=== PATIENT | male | born 1990 | race Caucasian/White ===

== ENCOUNTER 2017-01-21 19:35 | Emergency (ER) | END 2017-01-22 00:02 | disposition home or self-care (01) | DX: S05.92XA Unspecified injury of left eye and orbit, initial encounter (principal); W21.02XA Struck by soccer ball, initial encounter; Y92.9 Unspecified place or not applicable ==

== ENCOUNTER 2017-09-09 16:09 | Emergency (ER) | END 2017-09-09 20:00 | disposition home or self-care (01) ==

== ENCOUNTER 2018-10-16 11:13 | Emergency (ER) | payer OTHER ==
[~2018-10-16] VITALS: Ht 167.6 cm; Wt 75.0 kg
[~2018-10-16 11:13] MED LIST: GENT5DRO28 LEFT EYE; IBUP-1542 PO
[2018-10-16 11:21] VITALS: BP 136/93; PULSE 74; RESP 18; Ht 167.6 cm; Wt 75.0 kg
[2018-10-16] MEDS ORDERED: NAPR-985 PO (12:58)
--- NOTE | 2018-10-16 15:25 | ERD ---
ER Documentation Chief Complaint Chief Complaint left knee pain x yesterday HPI 27-year-old male presents to the emergency department complaining of left knee injury which occurred yesterday. The patient states he was running during a soccer game when he twisted his left knee and felt a pop. He reports 6/10 pain which is intermittent and worse with walking. He states he has difficulty weightbearing to the left lower extremity due to pain. He tried no medication at home to help with symptoms. He denies any falls, head trauma, loss of consciousness, or other symptoms or injuries at this time. ROS All systems reviewed and are negative except as per history of present illness. Medications Home Meds Active Scripts Naproxen* (Naprosyn*) 500 Mg Tablet, 500 MG PO BID PRN for PAIN AND/OR INFLAMMATION, #30 TAB Prov:MARILEE BRIDGES PA-C 10/16/18 Ibuprofen* (Motrin*) 600 Mg Tab, 600 MG PO Q6, #20 TAB Prov:PARTHA MALCOLM MD 09/09/17 Gentamicin Sulfate* (Gentamicin Sulfate* Ophth) 0.3% - 5 Ml Drops, 2 DROP LEFT EYE Q4 for 7 Days, #1 EA Prov:VANESSA CHANDLER PA-C 01/21/17 Allergies Allergies: Coded Allergies: No Known Allergy (Unverified , 01/21/17) PMhx/Soc History of Surgery: No Anesthesia Reaction: No Hx Neurological Disorder: No Hx Respiratory Disorders: No Hx Cardiac Disorders: No Hx Psychiatric Problems: No Hx Miscellaneous Medical Probl: Yes (PROTIEN C DEFFICENCY) Hx Alcohol Use: Yes (OOC) Hx Substance Use: No Hx Tobacco Use: No Smoking Status: Never smoker FmHx Family History: No diabetes Physical Exam Vitals Vital Signs Date Temp Pulse Resp B/P (MAP) Pulse Ox O2 O2 Flow FiO2 Time Delivery Rate 10/16/18 98.2 74 18 136/93 98 11:21 (107) Physical Exam const: No acute distress Head: Atraumatic Eyes: Normal Conjunctiva ENT: Normal External Ears, Nose and Mouth. Neck: Full range of motion. No meningismus. Resp: No respiratory distress. Skin: No petechiae or rashes Ext: Tenderness palpation over the left anterior knee with mild joint effusion noted. Decreased range of motion secondary to pain. Patient is neurovascularly intact distally. Neur: Awake and alert Psych: Normal Mood and Affect Results 24 hrs [place] [address] Radiology Main Line: [phone] DIAGNOSTIC IMAGING REPORT Patient: ROSA BETANCOURT : 1990 Age: 27 Sex: M MR #: [id number] DOS: 10/16/18 0000 Ordering MD: MARILEE BRIDGES PA-C Location: [facility] Room/Bed: PROCEDURE: X-RAY LEFT KNEE CLINICAL INDICATION: Left knee pain after injury. TECHNIQUE: Three views of the left knee are available for review. COMPARISON: None available FINDINGS: Bony alignment is within normal limits. Joint spaces are preserved. No fracture identified. There is a large joint effusion present. The joint effusion can be seen with synovitis and/or reflect soft tissue injury such as meniscal tear and/or ligament injury. IMPRESSION: 1. Large joint effusion which can be seen with synovitis and reflect soft tissue injury such as a meniscal tear and/or ligament injury. 2. No acute fracture or dislocation is seen. RPTAT: XX .Fernando Dahl MD, MD Date Time Electronically viewed and signed by .Fernando Dahl MD, MD on 10/16/2018 12:45 .T/ CC: MARILEE BRIDGES PA-C [id number] Procedures/MDM 27-year-old male presents to the emergency department with signs and symptoms most consistent with ligamental or tendon injury to the left knee. X-rays negative for signs of fracture. Patient was neurovascularly intact distally. There is no evidence to suggest compartment syndrome, DVT, or other emergencies. Patient was placed in the immobilizer and was neurovascularly intact post splint application. Patient's extremity symptoms have stabilized while they have been evaluated in the department and are appropriate for outpatient follow up. No evidence of compartment syndrome, neurologic injury, vascular injury, open joint, open fracture, tendon laceration, or foreign body. Patient advised to follow-up with orthopedic physician within the next 24 to 48 hours. Patient advised to return to the department immediately for any new or worsening or concerning symptoms. I shared my medical decision making with the patient and he understands and agrees with plan. Patient's blood pressure was elevated (>120/80) but appears stable without evidence of hypertension emergency or urgency. The patient is to follow-up and pursue outpatient monitoring and therapy with their primary care physician within 1 week and return immediately if they have any new, worsening, or concerning symptoms. Departure Diagnosis: Primary Impression: Effusion, left knee Condition: Fair Patient Instructions: Knee Pain, Meniscus Injury (Possible) Referrals: [facility] YOU HAVE RECEIVED A MEDICAL SCREENING EXAM AND THE RESULTS INDICATE THAT YOU DO NOT HAVE A CONDITION THAT REQUIRES URGENT TREATMENT IN THE EMERGENCY DEPARTMENT. FURTHER EVALUATION AND TREATMENT OF YOUR CONDITION CAN WAIT UNTIL YOU ARE SEEN IN YOUR DOCTORS OFFICE WITHIN THE NEXT 1-2 DAYS. IT IS YOUR RESPONSIBILITY TO MAKE AN APPOINTMENT FOR FOLOW-UP CARE. IF YOU HAVE A PRIMARY DOCTOR --you should call your primary doctor and schedule an appointment IF YOU DO NOT HAVE A PRIMARY DOCTOR YOU CAN CALL OUR PHYSICIAN REFERRAL HOTLINE AT IF YOU CAN NOT AFFORD TO SEE A PHYSICIAN YOU CAN CHOSE FROM THE FOLLOWING [facility] [address] [facility]. [facility] [address] [facility] [facility] [address] [facility] [facility] [address] [facility] [facility] [address] [facility]. [facility]. [address] [facility] Urgent Care 7 a.m.- 11 p.m. Every Day of the Week NO APPOINTMENT OR AUTHORIZATION NEEDED [facility] Hours: Mon-Fri 9:00 AM - 5:00 PM Additional Instructions: SPECIALIST: YOU HAVE A MEDICAL CONDITION WHICH REQUIRES YOU TO SEE A SPECIALIST WITHIN THE NEXT 1-2 DAYS. PLEASE FOLLOW UP WITH YOUR PRIMARY PHYSICIAN FOR REFFERAL.IF YOU DO NOT HAVE A PRIMARY CARE PHYSICIAN AND/OR YOU CAN NOT AFFORD TO SEE A PHYSICIAN THE FOLLOWING RESOURCES HAVE BEEN SUPPLIED TO YOU. IT IS YOUR RESPONSIBILITY TO BE SEEN BY THE SPECIALIST: ORTHOPEDICS MARILEE BRIDGES PA-C Oct 16, 2018 15:25
== END 2018-10-16 13:39 | disposition home or self-care (01) ==
LOC: FTE 11:13
DX: M25.462 Effusion, left knee (principal)
CPT/HCPCS: 73562